=== PATIENT | female | born 1975 | race Caucasian/White ===

== ENCOUNTER 2022-04-25 21:08 | Emergency (ER) | payer OTHER, SELFPAY | END 2022-04-25 22:35 | disposition home or self-care (01) | LOC: NAV ERS 21:08 | DX: S61.211A Laceration without foreign body of left index finger without damage to nail, initial encounter (principal); W26.0XXA Contact with knife, initial encounter; Z23 Encounter for immunization | CPT/HCPCS: 12001; 90471 ==

== ENCOUNTER 2024-05-26 12:47 | Emergency (ER) | payer OTHER ==
[2024-05-26] MEDS ORDERED: Bacitracin 1 PK ONE (13:29)
== END 2024-05-26 14:48 | disposition home or self-care (01) ==
LOC: NAV ERS 12:47
DX: S80.11XA Contusion of right lower leg, initial encounter (principal); S31.821A Laceration without foreign body of left buttock, initial encounter; E78.5 Hyperlipidemia, unspecified; W20.8XXA Other cause of strike by thrown, projected or falling object, initial encounter; Y93.89 Activity, other specified
CPT/HCPCS: 99283

== ENCOUNTER 2024-06-05 09:10 | Emergency (ER) | payer OTHER ==
[2024-06-05] MEDS ORDERED: Ibuprofen 200 MG TAB ONE (10:13)
== END 2024-06-05 10:21 | disposition home or self-care (01) ==
LOC: NAV ERS 09:10
DX: J11.1 Influenza due to unidentified influenza virus with other respiratory manifestations (principal); B35.4 Tinea corporis
CPT/HCPCS: 99283

== ENCOUNTER 2025-03-24 20:26 | Emergency (ER) | payer BC ==
[2025-03-24] MEDS ORDERED: Ketorolac Tromethamine 30 MG (1 mL) VIAL ONE (21:13)
[2025-03-24] MEDS ORDERED: Metoclopramide HCl 10 MG (2 mL) VIAL ONE (21:13)
[2025-03-24] MEDS ORDERED: Pantoprazole 40 MG VIAL ONE (21:13)
[2025-03-24 21:38] LABS: #Basophils 0.1 thou/uL (0.0-0.2); #Eosinophils 0.1 thou/uL (0.0-0.7); #Lymphocytes 1.6 thou/uL (1.20-3.40); #Monocytes 0.5 thou/uL (0.11-0.59); #Neutrophils 6.9 thou/uL (1.40-6.50); %Basophils 0.8 % (0.0-1.0); %Eosinophils 0.9 % (0.0-10.0); %Lymphocytes 17.8 % (21.0-51.0); %Monocytes 5.6 % (0.0-10.0); %Neutrophils 75.0 % (42.0-75.0); Hematocrit 41.5 % (36.0-47.0); Hemoglobin 13.7 g/dL (12.0-16.0); Mean Corpuscular Hemoglobin 28.1 pg (27.0-31.0); Mean Corpuscular Volume 84.9 fl (78.0-98.0); Platelet Count 268 10x3/uL (130-400); Red Blood Cell (RBC) Count 4.89 mill/uL (4.20-5.40); White Blood Cell (WBC) Count 9.2 10x3/uL (4.8-10.8)
[2025-03-24 21:42] LABS: Pregs Control Bar Appear? YES (CONTROL BAR)
[2025-03-24 21:44] LABS: BHCG - Serum Negative (NEGATIVE)
[2025-03-24 21:54] LABS: ALT (SGPT) 16 U/L (Less than 34); AST (SGOT) 19 U/L (11-34); Albumin 4.4 g/dL (3.1-4.5); Alkaline Phosphatase 72 U/L (40-110); Anion Gap 16 mmol/L (10-20); BUN (Urea Nitrogen) 8 mg/dL (9.8-20.1); Bilirubin, Total 0.5 mg/dL (0.3-1.2); Calc. Creatinine Clearance 0 mL/min (70-130); Calcium 9.8 mg/dL (7.8-10.44); Carbon Dioxide 20 mmol/L (22-29); Chloride 106 mmol/L (98-107); Globulin 2.6 g/dL (2.4-3.5); Glucose 102 mg/dL (70-105); Potassium 3.9 mmol/L (3.5-5.1); Sodium 138 mmol/L (136-145)
== END 2025-03-24 22:35 | disposition home or self-care (01) ==
LOC: NAV ERS 20:26
DX: G43.909 Migraine, unspecified, not intractable, without status migrainosus (principal)
CPT/HCPCS: 80053; 84703; 85025; 96374; 96375; J1885; J2470; J2765; J2919; J7030